=== PATIENT | female | born 1980 ===

== ENCOUNTER 2018-11-30 21:29 | Emergency (ER) | payer SELFPAY ==
[2018-11-30] MEDS ORDERED: Albuterol-Ipratrop 3 mg / 0.5 (3 ml) UD IH STA (22:32)
--- NOTE | 2018-11-30 22:37 | ED PDOC ---
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 Patient reports pain in chest with coughing. + subjective fevers. Denies ear pain, throat pain, shortness of breath, palpitations, vomiting, changes in bowel movements, recent travel. + Sick contacts at work. Past Medical History Reviewed: Historical Data, Nursing Documentation, Vital Signs Vital Signs: Last Vital Signs Temp 98.5 F 11/30/18 21:47 Pulse 89 11/30/18 21:47 Resp 16 11/30/18 21:47 BP 148/94 H 11/30/18 21:47 Pulse Ox 97 11/30/18 21:47 - Medical History PMH: No Chronic Diseases - Surgical History Surgical History: No Surg Hx - Family History Family History: States: No Known Family Hx - Living Arrangements Living Arrangements: With Family - Home Medications Home Medications: Ambulatory Orders Medication Instructions Recorded Oseltamivir Cap [Tamiflu] 75 mg PO BID #9 cap 11/30/18 Promethazine DM [Phenergan DM 5 ml PO Q6 PRN #1 bottle 11/30/18 Syrup] - Allergies Allergies/Adverse Reactions: Allergies Allergy/AdvReac Type Severity Reaction Status Date / Time No Known Allergies Allergy Verified 11/30/18 21:47 Review of Systems ROS Statement: Except As Marked, All Systems Reviewed And Found Negative Cardiovascular: Positive for: Chest Pain Respiratory: Positive for: Cough Physical Exam - Reviewed Nursing Documentation Reviewed: Yes Vital Signs Reviewed: Yes - Physical Exam Appears: Positive for: Well, Non-toxic, No Acute Distress Head Exam: Positive for: ATRAUMATIC, NORMAL INSPECTION, NORMOCEPHALIC Skin: Positive for: Normal Color Eye Exam: Positive for: Normal appearance ENT: Positive for: Nasal Congestion Cardiovascular/Chest: Positive for: Regular Rate, Rhythm Respiratory: Positive for: Normal Breath Sounds Gastrointestinal/Abdominal: Positive for: Normal Exam Back: Positive for: Normal Inspection Extremity: Positive for: Normal ROM Neurological/Psych: Positive for: Awake, Alert, Oriented (x3) - ECG O2 Sat by Pulse Oximetry: 97 - Radiology X-Ray: Viewed By Me X-Ray Interpretation: No Acute Disease - Progress ED Course And Treament: -influenza -cxr -duoneb Patient educated on findings, discharged with rx Tamiflu (dose given in ED), promethazine DM Advised increase fluid intake, rest. Follow up PMD within 2-3 days Return precautions given Disposition - Clinical Impression Clinical Impression: Influenza - Patient ED Disposition Is Patient to be Admitted: No Counseled Patient/Family Regarding: Studies Performed, Diagnosis, Need For Followup, Rx Given - Disposition Referrals: [facility] [Outside] Disposition: Routine/Home Disposition Time: 00:00 Condition: IMPROVED Prescriptions: Oseltamivir Cap [Tamiflu] 75 mg PO BID #9 cap Promethazine DM [Phenergan DM Syrup] 5 ml PO Q6 PRN #1 bottle PRN Reason: Cough Instructions: Flu Forms: [facility] ED School/Work Excuse Print Language: LITHUANIAN
[2018-11-30] MEDS ORDERED: Albuterol-Ipratrop 3 mg / 0.5 (3 ml) UD ONE (22:46)
[2018-12-01 00:25] VITALS: BP 137/82; PULSE 76; RESP 17; TEMP 98.7; O2SAT 98
--- NOTE | 2018-12-01 09:18 | RAD ---
Date of service: 11/30/2018 HISTORY: Cough COMPARISON: No prior. TECHNIQUE: Chest PA and lateral FINDINGS: LINES AND TUBES: None. LUNG AND PLEURA: The lungs are well inflated and clear. No pleural effusion or pneumothorax. HEART AND MEDIASTINUM: The heart is not enlarged. No aortic atherosclerotic calcifications present. The hilar and mediastinal contours are within normal limits. SKELETAL STRUCTURES: The bony structures are within normal limits for the patient's age. VISUALIZED UPPER ABDOMEN: Normal. OTHER FINDINGS: None. IMPRESSION: No active pulmonary disease.
== END 2018-12-01 00:24 | disposition home or self-care (01) ==
LOC: H.ER 21:29
DX: J11.1 Influenza due to unidentified influenza virus with other respiratory manifestations (principal)